=== PATIENT | female | born 1960 | race Caucasian/White ===

== ENCOUNTER 2023-02-25 11:57 | Observation (INO) | payer BC, SELFPAY ==
[2023-02-25] VITALS (14 sets, daily range): BP systolic 104–118; BP diastolic 59–76; PULSE 66–98; RESP 14–18; TEMP 36.4–37.1; O2SAT 93–98; BMI 27.2; BMI 28.8
--- NOTE | 2023-02-25 05:53 | EKG12_ITS ---
Test Reason : PRE-OP Blood Pressure : / mmHG Vent. Rate : 068 BPM Atrial Rate : 068 BPM P-R Int : 122 ms QRS Dur : 090 ms QT Int : 422 ms P-R-T Axes : 002 033 031 degrees QTc Int : 448 ms Normal sinus rhythm Normal ECG No previous ECGs available Confirmed by ANNELISE LOPEZ ([id number]), supervising film or videotape editor ALYCIA DUARTE ([id number]) on 03/10/2023 9:39:29 AM Referred By: Rafiq Ortiz Confirmed By:ANNELISE LOPEZ
[2023-02-25] MEDS: Lactated Ringers 1,000 ML 40 ML IV (06:15)
[2023-02-25 06:20] LABS: Hematocrit 40.5 % (37-47); Mean Corp Hgb Conc 32.1 g/dL (32-36); Mean Corpuscular Hgb 28.4 pg (27.0-32.0); Mean Corpuscular Volume 88.4 fL (81-99); Mean Platelet Vol. 9.4 fl (6.2-12.0); Platelet Count 244 K/mm3 (150-450); RBC Distribution Width CV 13.2 % (11.6-14.6); RBC Distribution Width SD 42.6 fl (35.1-43.9); Red Blood Count 4.58 M/mm3 (4.2-5.4); White Blood Count 6.3 K/mm3 (4.4-11.0)
[2023-02-25 06:32] LABS: Magnesium 2.2 mg/dL (1.6-2.6)
[2023-02-25] MEDS: Acetaminophen 500 MG Tablet 1000 MG PO ×2 (06:36→18:19)
[2023-02-25] MEDS: Gabapentin 600 MG Tablet PO (06:36)
[2023-02-25] MEDS: Scopolamine 1mg/72hr Patch 1 PATCH TD (06:36)
[2023-02-25] MEDS: Magnesium 1 GM over 15 mins IV (06:47)
[2023-02-25 07:26] LABS: Bedside Glucose 84 mg/dL (74-106)
--- NOTE | 2023-02-25 07:30 | TISS_PTH ---
PATIENT: EUFEMIA MARTIN LOC: MS3 U#:[id number] AGE/SX: 62/F ROOM: [facility] [place] RE02/25/[address]: Dr. Rafiq Ortiz MD : 1960 BED: 1 DIS: 02/26/2023 SPEC #: [id number] RECD: 02/25/23 11:49 STATUS: NETTA BRANCHCade #: [id number] THIERRY: 02/25/23 07:[address]: Rafiq Ortiz DEPT: SURGICAL PATHOLOGY RECD BY: Larissa Sharif ENTERED: 02/25/23 13:00 SP TYPE: Tissue Bx RABIA DR: Dr. Heena Nicole DO Tissues: A - TISSUE SURGICALLY REMOVED B - TISSUE SURGICALLY REMOVED Procedures: Surgery Specimen Level IV HEADER OPERATION: ERAS, removal painful textured saline implant bilateral breasts PRE-OP DIAGNOSIS: Bilateral breast pain; painful capsular contracture breast implants TISSUE SUBMITTED: A - Left breast capsule and tissue, B - Right breast capsule and tissue MICROSCOPIC DIAGNOSIS A. Left breast capsule and tissue: Fragments of dense fibroconnective tissue and skeletal muscle tissue consistent with breast capsule with reactive changes. A piece of skin, no pathologic diagnosis. B. Right breast capsule and tissue: Fragments of dense fibroconnective tissue and skeletal muscle tissue consistent with breast capsule with reactive changes. A piece of skin, no pathologic diagnosis. SJ:christophe 02/26/2023 MICROSCOPIC DESCRIPTION Slides are reviewed. GROSS DESCRIPTION A - Received in fixative is one container labeled with the patient's name and designated left breast capsule and tissue. The specimen consists of a piece of fibroadipose tissue consistent with capsule measuring 12.5 x 6.5 x 0.5 cm. A strip of mcknight-white skin is also noted measuring 10.0 x 0.3 x 0.3 cm. Also present in the container is a detached piece of adipose tissue measuring 2.0 x 2.0 x 0.5 cm. Sections do not reveal any mass lesion. [employer] sections are submitted in four cassettes as follows: 1 - skin and detached piece of tissue, 2-4 - tissue consistent with capsule. B - Received in fixative is one container labeled with the patient's name and designated right breast capsule and tissue. The specimen consists of an irregular piece of soft tissue consistent with breast capsule measuring 13.0 x 7.0 cm and 0.5 cm in thickness. A strip of mcknight-white skin is also noted measuring 10.0 x 0.5 x 0.4 cm. No mass lesion is identified. [employer] sections are submitted in three cassettes. Cassette 3 also contains the skin piece. / RUSS:christophe 02/25/2023 TC:5 CPT: 55208 x2
[2023-02-25] MEDS: Cefazolin 2 GM in 0.9% Normal Saline 100 ML IV (08:00)
[2023-02-25] MEDS: Lidocaine 1% /Epi 1:100 (20ml) 20 ML Vial (09:45)
--- NOTE | 2023-02-25 10:42 | PCM.OPRPT ---
Report of Operation Date of Procedure: 02/25/23 Pre-Operative Diagnosis: 1. Bilateral breast pain. 2. Painful capsular contracture breast implants, worse on the left. 3. Status placement of textured saline breast implants. 4. 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 5. 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 Post-Operative Diagnosis: Same. Surgery/Procedure Performed:: 1. Excision painful subglandular textured saline implant right breast with capsulectomy. 2. Excision painful subglandular textured saline implant left breast with capsulectomy. Description of Surgical Findings:: 62 year old woman presents with bilateral breast pain and firmness with associated wrinkling that started about a year ago and has worsened since.? She had saline breast implants placed in 2003.? The implants were textured.? I think they were placed under the muscle.? Patient is not sure but thought they were placed above the muscle.? Will try and get the operative report.? It was done at [facility] in [place].? She also noticed lateral migration of the nipples and some contracture leading to lateral migration of the implants.? She presents at this time for further evaluation about having the implants removed.? She is also nervous about developing DAVID-ALCL that has been associated with textured implants which she has.? ?At this time she denies fever.? She denies trauma to the breasts.? She denies recent infection.? She denies nipple discharge.? She states her last mammogram was done in June,.? It was normal according to the patient.? Will obtain that report. Patient was informed of the risks and complications of the procedure including alternatives to surgery. These were discussed with the patient personally. Patient voices understanding and wishes to proceed. Some of the risks and complications were included in a form from the [employer]. Potential risks and complications included but not inclusive of bleeding, infection, seroma, hematoma, bruising, swelling, prolonged need for drains, loss of sensation to skin, partial or complete loss of skin flap and/or nipple, wound breakdown, need for wound care, poor scarring, poor aesthetic outcome, intra operative cardiac or neurologic events, DVT, PE, and reaction to anesthesia. Urine Output - 880 ml. I used Laura absorbable hemostat, (I used 4 vials, 2 in each breast). Reference Number - [id number]. Lot Number - [id number]. Expiration - June 16, 2027, (2 vials in right breast). Reference Number - [id number]. Lot Number - [id number]. Expiration - October 15, 2027, (2 vials in left breast). Surgeon: Rafiq Ortiz MD piece goods packer: Marybel Renee RNFA Type of Anesthesia: General Anesthesiologist: Benjamin Bustos MD and Flaquita Macias CRNA Specimen's removed: 1. Right breast and capsule to Pathology and Microbiology. 2. Left breast and capsule to Pathology and Microbiology. Drains: Lex x2 (one in each breast). Estimated Blood Loss (mL): 50. Fluids Replaced: Urine Output - 880 ml Description of Procedure: In the preop area, the patient was placed in the standing position and preop markings were made. Sternal midline was marked down to the umbilicus. The inframammary folds were marked. Patient was taken to OR in supine position and was placed under general anesthesia. The breasts was prepped and draped in the usual fashion. Ioban was used also around the breasts. SCD's were placed for DVT prophylaxis. Perioperative antibiotics were given intravenously. A zavala catheter was placed. Using xylocaine with epinephrine, the inframammary scars were infiltrated. I lengthened the scars for better exposure in removing the implants. After waiting 5 minutes for the anesthetic to take effect, I first operated on the right breast and then the left breast. The inframammary incision was made down into the subcutaneous tissue until the capsule was seen. A capsulotomy was performed to visualize the implant. The implant was removed. It was a saline textured implant, 450 ml. Some of the saline had leaked out as the implant was not filled to capacity. Since this was an adjustable implant, the valve anteriorly probably loosened over time to allow some leakage. I squeezed the implant vigorously and no leak was appreciated. A capsulectomy was performed as this was a textured implant with a known risk of developing DAVID-ALCL (Breast Implant Associated - Anaplastic Large Cell Lymphoma). The capsule was peeled off the pectoralis muscle as it appeared the implants were placed on top of the muscle (subglandular). Some of the breast tissue and capsule were sent to Pathology for analysis to rule out carcinoma and to Microbiology for culture. A positive culture will necessitate antibiotic therapy. Hemostasis was obtained with electrocautery. I then irrigated the right breast wound with Irrisept 0.05% Chlorhexidine and this was followed with saline irrigation. A size 15 Lex drain was placed through a separate stab incision laterally and secured to the skin with 3-0 Nylon purse string suture. I then sprayed Laura absorbable hemostat into the right breast pocket to help minimize seroma formation. I used 2 vials. The capsular tissue did not have any calcifications. Some fluid was seen within the capsule. It was not milky. It looked serous in nature. I then went to the left breast. The inframammary incision was made down into the subcutaneous tissue until the capsule was seen. A capsulotomy was performed to visualize the implant. The implant was removed. It was a saline textured implant, 450 ml. Some of the saline had leaked out as the implant was not filled to capacity. Since this was an adjustable implant, the valve anteriorly probably loosened over time to allow some leakage. I squeezed the implant vigorously and no leak was appreciated. A capsulectomy was performed as this was a textured implant with a known risk of developing DAVID-ALCL (Breast Implant Associated - Anaplastic Large Cell Lymphoma). The capsule was peeled off the pectoralis muscle as it appeared the implants were placed on top of the muscle (subglandular). Some of the breast tissue and capsule were sent to Pathology for analysis to rule out carcinoma and to Microbiology for culture. A positive culture will necessitate antibiotic therapy. Hemostasis was obtained with electrocautery. I then irrigated the left breast wound with Irrisept 0.05% Chlorhexidine and this was followed with saline irrigation. A size 15 Lex drain was placed through a separate stab incision laterally and secured to the skin with 3-0 Nylon purse string suture. I sprayed Laura absorbable hemostat into the left breast pocket to help minimize seroma formation. I used 2 vials. The capsular tissue did not have any calcifications. Some fluid was seen within the capsule. It was not milky. It looked serous in nature. Both breast wounds were closed with 3-0 Vicryl figure of eight interrupted sutures for the subcutaneous and Ryann's fascial layer. The deep dermis and subcutaneous tissue was approximated with 3-0 Monocryl interrupted sutures. The skin was approximated with 3-0 V lock unidirectional barbed running subcuticular suture. This was followed with Histoacryl skin tissue adhesive. Kerlix gauze was applied to both breasts followed with a double 6 inch compression leonardo wrap. Patient tolerated the procedure well and was sent to PACU in satisfactory condition. Patient will be sent upstairs for continued postop care. She will be discharged tomorrow if tolerating po analgesia and is steady on her feet with ambulation. Followup office one week. Will remove the drains in 2 weeks. She will be maintained on antibiotics until the drains are removed. Will discuss the Pathology report when it is available. Will discuss the Microbiology report when it is available. A positive culture will necessitate antibiotic therapy. Grafts/Implants Used: Laura Procedure Start Time: 08:17 Procedure Stop Time: 10:38 Complications None. Admit VTE Documentation VTE Present on Admission: No VTE Mechan Device Prophylaxis: SCD's VTE Pharm Prophylaxis ordered?: Yes Addendum Addendum: Surgery Charges CPT - 75834-56 ICD-10 - N64.4, T85.44xA, Z98.82, N65.0, F40.298 67068 N64.4, T85.44xA, Z98.82, N65.0, F40.298
[2023-02-25] MEDS: HYDROmorphone 1 MG/ML Syringe IV (14:50)
[2023-02-25] MEDS: Lactated Ringers 1,000 ML 60 ML IV (14:50)
[2023-02-25] MEDS: Cefazolin 1 GM/50 ML BAG IV ×2 (17:26→21:53)
[2023-02-25] MEDS: Gabapentin 100 MG Capsule 200 MG PO (18:19)
[2023-02-25] MEDS: Ondansetron 4 MG/2 ML Vial IV (21:48)
[2023-02-25] MEDS: oxyCODONE 5 MG Tablet PO (21:52)
--- NOTE | 2023-02-25 23:55 | PCM.HP.BLA ---
History and Physical Date of Admission: 02/25/23 HISTORY OF PRESENT ILLNESS 62 year old woman presents with bilateral breast pain and firmness with associated wrinkling that started about a year ago and has worsened since. She had saline breast implants placed in 2003. The implants were textured. I think they were placed under the muscle. Patient is not sure but thought they were placed above the muscle. Will try and get the operative report. It was done at [facility] in [place]. She also noticed lateral migration of the nipples and some contracture leading to lateral migration of the implants. She presents at this time for further evaluation about having the implants removed. She is also nervous about developing DAVID-ALCL that has been associated with textured implants which she has. At this time she denies fever. She denies trauma to the breasts. She denies recent infection. She denies nipple discharge. She states her last mammogram was done in June,. It was normal according to the patient. Will obtain that report. 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 Chronic sinusitis Constipation Deformity of reconstructed breast Depression Frequent headaches IBS (irritable bowel syndrome) Joint pain Pain of both breasts Rheumatoid arthritis Spondylosis Vitamin D deficiency PAST SURGICAL HISTORY History of appendectomy History of bilateral carpal tunnel release History of breast augmentation History of cholecystectomy History of total hysterectomy Status post saline breast implant ALLERGIES Sulfa (Sulfonamide Antibiotics) MEDICATIONS alprazolam escitalopram oxalate (Lexapro) fesoterodine (Toviaz) FAMILY HISTORY Other - Depression, Heart disease, IBS (irritable bowel syndrome), Thyroid disorder SOCIAL HISTORY Smoking Status: Never smoker alcohol intake: current details: occasionally in social situations substance use type: does not use REVIEW OF SYSTEMS General - Denies fever and weight loss. Has fatigue. Eyes - Has cataracts. Denies glaucoma. ENT - Denies nasal congestion and sore throat. Endocrine - Denies excessive thirst and urination. Has chronic sinus problems. Had textures saline implants placed in 2003. Skin - Denies suspicious lesions and skin cancer. Musculoskeletal - Has joint pain, joint stiffness, back pain. Denies weakness of muscles and joints and arthritis. Neuro - Has headaches. Cardiovascular - Denies chest pain, fatigue, and shortness of breath with exertion. Psych - Denies anxiety. Has depression. Respiratory - Denies chronic cough and shortness of breath. Gastrointestinal - Denies nausea, vomiting, diarrhea. Has constipation. Hematologic - Denies abnormal bruising and bleeding. Genitourinary - Denies hematuria and urinary frequency. Has incontinence. PHYSICAL EXAMINATION General - Alert and Oriented. Bra size is a C cup. HEENT - PERRL. EOMI. Throat is clear. Neck - Supple and nontender. No cervical adenopathy. Breasts - some firmness noted superiorly and laterally in both breasts. Also medially on the left. Some tenderness to palpation, worse on the left. Sometimes the pain is stabbing. There is some lateral displacement of the nipple areolar complexes. Width of the breasts are 15 cm bilaterally and the height of the breasts are 17 cm bilaterally. I can feel a thickening of the capsule indicating a contracture of the implants which can explain the pain and the distortion of the breasts, Oliver Grade III. No breast masses palpable. No clinical evidence of seroma formation. Lungs - Clear to auscultation. Heart - Regular rate and rhythm. Abdomen - Soft and nondistended. Extremities - FROM. No axillary adenopathy. Radial pulses are palpable. Neuro - CN II-XII grossly intact. Psych - Normal mood and affect. ASSESSMENT 1. Bilateral breast pain. 2. Painful capsular contracture breast implants, worse on the left. 3. Status placement of textured saline breast implants. 4. 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 5. 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 PLAN Will obtain copy of the mammogram. Patient is interested in having the textured breast implants removed because of pain and distortion from a capsular contracture and also because of cancer phobia from developing DAVID-ALCL because of presence of textured implants. This lymphoma (ALCL) is associated with textured implants. It is generally recommended to leave the implants alone if patient is asymptomatic. However, some patients don't want to wait until they become symptomatic and just want the textured implants removed. The treatment is removal of the implants with capsulectomy. After the implants are removed, she is interested in further breast reconstruction with a breast lift. Right now she is not interested in further breast implants. I use smooth walled cohesive gel implants. DAVID-ALCL has not been associated with smooth walled implants at this time. She will think about it. After removing the implants, I want to see how much healing has occurred and how much skin contraction has occurred. Generally they don't contract equally so a breast lift is usually needed. By waiting, she may end up with a smaller operation depending on the degree of skin contraction. Also I like to separate the procedures to allow healing and to minimize stress on the blood supply to the nipple. With the placement of the implants, some of the blood supply to the nipple is disrupted. This can effect vascular viability of the nipple areolar complex especially if a breast lift is done and the nipple needs to be elevated several cm. Usually incision needs to be made completely around the nipple in order to elevate it, sometimes several cm. If the elevation is small, i.e., 2 cm, sometimes we are able to just make an incision around half the nipple areolar complex, usually superior. The blood supply is mainly through the inferior aspect of the nipple areolar complex. So elevating the nipple in this scenario is doable and safer since the blood supply inferiorly would be maintained. Also by waiting in between surgeries, the risk of developing nipple viability issues can be minimized. Patient is aware of the necessity for separate operations. Will write a letter to the insurance company for medical approval for removal of the implants with capsulectomy. If not approved, she will be financially responsible for the surgery. She voices understanding. After obtaining medical approval, she will return for a preop visit to answer any last minute questions and to sign the office consent and to obtain photographs. Patient was informed of the risks and complications of the procedure including alternatives to surgery. These were discussed with the patient personally. Patient voices understanding and wishes to proceed with the current plan of obtaining medical approval for the surgery. When surgery is done it will be under general anesthesia with a surgical observation overnight stay in the hospital. She will have drains in for 10-14 days. She will wear a compression garment or compression leonardo wrap after surgery for 6 weeks and be on a lifting restriction for 6 weeks. For the breast lift surgery, that will be considered cosmetic and she will be financially responsible. She voices understanding. She may or may not need drains for her bilateral breast lift. Assessment & Plan Assessment/Plan (1) Pain of both breasts: (2) Capsular contracture of breast implant: (3) Status post saline breast implant: (4) Deformity of reconstructed breast: (5) Cancer phobia:
[2023-02-26 00:44] VITALS: BP 104/62; PULSE 78; RESP 14; TEMP 36.9; O2SAT 94
[2023-02-26] MEDS: Acetaminophen 500 MG Tablet 1000 MG PO ×3 (00:59→12:14)
[2023-02-26] MEDS: oxyCODONE 5 MG Tablet PO ×2 (01:05→14:44)
[2023-02-26 04:55] VITALS: BP 101/56; PULSE 81; RESP 16; TEMP 36.6; O2SAT 92
[2023-02-26] MEDS: Cefazolin 1 GM/50 ML BAG IV ×2 (05:02→14:40)
[2023-02-26 06:17] VITALS: BP 106/62
[2023-02-26] MEDS: Lactated Ringers 1,000 ML 60 ML IV (06:21)
[2023-02-26 06:23] LABS: Hemoglobin 12.6 g/dL (12.0-15.0); Mean Corp Hgb Conc 31.5 g/dL (32-36); Mean Corpuscular Hgb 28.4 pg (27.0-32.0); Mean Corpuscular Volume 90.1 fL (81-99); Mean Platelet Vol. 9.6 fl (6.2-12.0); Platelet Count 270 K/mm3 (150-450); RBC Distribution Width CV 13.4 % (11.6-14.6); RBC Distribution Width SD 44.3 fl (35.1-43.9); Red Blood Count 4.44 M/mm3 (4.2-5.4); White Blood Count 11.9 K/mm3 (4.4-11.0)
[2023-02-26 07:08] LABS: Anion Gap 4 (5-15); BUN 10 mg/dL (7-18); BUN/Creat Ratio 11.2 RATIO (10-20); Calcium,Total 8.8 mg/dL (8.5-10.1); Chloride 99 mmol/L (98-107); Creatinine, Serum 0.89 mg/dL (0.55-1.02); EST Glomerular Filtration Rate 69 mL/min (>60); Est Glom Filt Rate - Afr Amer 83 mL/min (>60); Estimated Creatinine Clearance 57.32 ml/min; Glucose 100 mg/dL (74-106); Potassium 3.6 mmol/L (3.5-5.1); Prealbumin 29.5 mg/dL (20.0-40.0); Sodium Level 133 mmol/L (136-145)
[2023-02-26 08:22] VITALS: O2SAT 94
[2023-02-26 09:25] VITALS: BP 97/57; PULSE 76; RESP 18; TEMP 36.5; O2SAT 96
[2023-02-26] MEDS: Gabapentin 100 MG Capsule 200 MG PO ×2 (09:36→12:14)
[2023-02-26] MEDS: Docusate Sodium 100 MG Capsule PO (09:37)
[2023-02-26] MEDS: Escitalopram Oxalate 20 MG Tablet PO (09:37)
[2023-02-26] MEDS: Enoxaparin 40 MG/0.4 ML Syringe SC (09:37)
[2023-02-26] MEDS: Tolterodine Tartrate 2 MG CAP.SA PO (09:37)
--- NOTE | 2023-02-26 13:25 | PCM.PN.SRG ---
Subjective Subjective Postop #1 She states her pain is well controlled. She is complaining of heart burn. Objective Data Objective Data Vital Signs: Vital Signs Temp Pulse Resp BP Pulse Ox O2 Del Method O2 Flow Rate 97.5 F L 77 18 108/53 L 96 Room Air 2 02/26/23 14:46 02/26/23 14:46 02/26/23 14:46 02/26/23 14:46 02/26/23 14:46 02/26/23 14:46 02/25/23 16:00 Oxygen Flow Rate (L/min) 2 Oxygen Delivery Method Room Air Weight: 167 lb 12.348 oz Body Mass Index (BMI) 28.8 Intake & Output: Intake and Output for Last 24 Hours 02/25/23 02/26/23 23:59 23:59 Intake Total 1217.33 / 1417.33 1852 / 1852 Output Total 1050 / 1320 430 / 430 Balance 167.33 / 97.33 1422 / 1422 Lex drain Left breast 100 ml, right breast 115 ml Lab / Micro Data Attestation: I reviewed the patient's lab results. 02/26/23 05:40 02/26/23 05:40 Micro: Microbiology 02/25/23 12:38 Tissue - Other Gram Stain - Final 02/25/23 12:37 Tissue - Other Gram Stain - Final Physical Exam Const oriented x3 HEENT normocephalic Eyes General Eye: normal appearance of both eyes Resp normal respiratory effort Effort and Inspection: able to speak in complete sentences Cardio regular rate and regular rhythm GI soft to palpation Back/Spine normal ROM Extremity full ROM Skin Skin Narrative: Operative dressing removed. Incision is dry and intact. No bruising. Nipples viable. Good symmetry. Lex drains intact draining serosanguineous drainage. Neuro oriented x3 Psych mental status grossly normal Assessment & Plan Assessment/Plan (1) Capsular contracture of breast implant: (2) Pain of both breasts: (3) Status post saline breast implant: (4) Deformity of reconstructed breast: (5) Cancer phobia: (6) Other acute postprocedural pain: PLAN: Plan Patient is doing well. She states her pain is well controlled. Will give her Mylanta now for her heart burn/indigestion. Will order omeprazole to be taken daily. Operative dressing removed. Incisions are dry and intact. Nipples viable. Good symmetry. She will wear compression. She will keep track of her drainage amount. Lex drains have drained left 100 ml and right 115 ml in the past 24 hours. She will be placed on antibiotic until her drains are removed. She has a 20 lb weight lifting restriction. Follow up in the office next week.
--- NOTE | 2023-02-26 13:44 | DCINST_ITS ---
Discharge Instructions Diet Discharge Diet: No restrictions and - (encourage nutritional supplementation with protein to help the healing process.) Activity Discharge Activity: May Not Drive, May Not Shower (until drains are removed.) and - (keep head elevated. no heavy lifting.) May shower in (days): 14 (after the drains are removed.) May resume sexual activity in: 10-14 days Weight Bearing Status: Weight bearing as tolerated Lifting Restrictions: 20 lbs. Keep extremity elevated above heart level: - (elevate head.) Dressing / Incision Call your doctor if your incision/area has: Continuous Slow Oozing, Sudden Increased Bleeding, Increased Pain/ Swelling, Increased Redness, Foul Smelling Discharge and Swelling at the incision site Call your doctor if you observe: Fever of 101 or Higher, Coldness, Increased Pain, Shortness of breath, Chest pain, Calf discomfort and Uncontrolled pain Change Dressing in: 2 days Cleanse incision/area with: - (may get incisions wet in the shower after the drains are removed.) Drain: Suction (kristel drain x2 to bulb suction. empty and record output daily.) Follow Up Care Please Follow Up With: Rafiq Ortiz MD When: one week. call [phone] for appt. Test Results: Test results from this visit will be discussed in further detail at your follow- up appointment, if applicable. Discharge Plan Admission Admit Date/Time: 02/25/23 11:57 Primary Reason for Your Visit: removal painful bilateral textured breast implants with capsulectomy Attending Provider: Rafiq Ortiz Primary Care Provider: Heena Nicole Discharge Orders/Prescriptions Prescriptions: New cefadroxil 500 mg capsule 500 mg PO BID Qty: 28 0RF L.acidoph,saliva-B.bif-S.therm [Acidophilus Probiotic Blend] 175 mg capsule 1 cap PO DAILY Qty: 30 0RF oxycodone-acetaminophen [Percocet] 5-325 mg tablet 1 tab PO Q6H PRN (Reason: pain (scale score 7-10)) 7 Days Qty: 28 0RF Rx Instructions: 28 tabs (twenty-eight) diazepam [Valium] 5 mg tablet 5 mg PO BID PRN (Reason: spasms) 7 Days Qty: 14 0RF Rx Instructions: 14 tabs (fourteen) Continued fesoterodine [Toviaz] 4 mg tablet extended release 24 hr 4 mg PO DAILY escitalopram oxalate [Lexapro] 20 mg tablet 20 mg PO DAILY alprazolam 0.5 mg tablet 0.5 mg PO QHS PRN (Reason: anxiety) Other Ambulatory Orders: 12 Lead EKG (Routine) Timeframe: [id number] Location: None Selected Ordered By: Dr. Juan Hair Referrals / Follow Up: Heena Nicole DO [Primary Care Provider] - Disposition Disposition (needs filled in before D/C Order can be placed): Home, Self Care
[2023-02-26] MEDS: Mag Hydrox/Al Hydrox/Simeth 30 ML UDC 15 ML PO (14:40)
[2023-02-26 14:46] VITALS: BP 108/53; PULSE 77; RESP 18; TEMP 36.4; O2SAT 96
== END 2023-02-26 15:25 | disposition home or self-care (01) ==
LOC: SDC 02-26 10:30 → MS3 02-26 10:30
PROVIDERS: Anesthesiology; Admitting Provider Surgery; PCP Internal Medicine; Referring Provider Surgery; Visit Provider Surgery
PROC: (CPT 19371; principal; 2023-02-25 07:15)
DX: N64.4 Mastodynia (principal); M06.9 Rheumatoid arthritis, unspecified; Z98.82 Breast implant status; T85.44XA Capsular contracture of breast implant, initial encounter; Y82.8 Other medical devices associated with adverse incidents; F45.29 Other hypochondriacal disorders; N65.0 Deformity of reconstructed breast; F32.A Depression, unspecified; Z79.899 Other long term (current) drug therapy
CPT/HCPCS: 19371; 00402; 36415; 80048; 82962; 83735; 84134; 85027; 87070; 87075; 87077; 87102; 87176; 87186; 87205; 87206; 88305; 93005; 94668; 96365; 96366; 96372; 96375; 99221; 99252; J7120; G0378; G0463; J2405; J3475; Q9968

== ENCOUNTER → 2023-03-09 | Outpatient (CLI) | payer BC, SELFPAY ==
--- NOTE | 2023-03-09 13:35 | VDLE_ITS ---
Reason For Study: RLE Pain RIGHT LEFT GSV is normal. CFV is compressible, spontaneous, phasic, CFV is compressible, spontaneous, phasic, competent, and demonstrates normal competent and demonstrates normal augmentation. augmentation. FV is compressible, spontaneous, phasic, competent and demonstrates normal augmentation. POP V is compressible, spontaneous, phasic, competent and demonstrates normal augmentation. T/P Trunk is compressible. PTV is compressible. RT PerV is compressible. Procedure This is a venous duplex using B-mode, color flow and spectral Doppler. Exam performed in department. The exam was diagnostic. A preliminary report was called and/or faxed to [facility] office. VL/Venous Duplex US, Unilateral Interpretation Summary Deep veins of the right lower extremity are patent and compressible segmentally . There is no evidence of right lower extremity deep vein thrombosis. Valvular competence alicia ears intact within the proximal deep venous system on the right . The right great saphenous vein a ppears patent and compressible segmentally. The left common femoral vein is patent and compressib le . Ordering Physician: Huong Sanchez Referring Physician: Heena Nicole Performed By: Kuldeep Aleman RVT
== END | disposition home or self-care (01) ==
LOC: CVS 13:34
PROVIDERS: PCP Internal Medicine; Referring Provider Nurse Practitioner Family; Visit Provider Nurse Practitioner Family
DX: M79.661 Pain in right lower leg (principal); M79.89 Other specified soft tissue disorders; T85.44XA Capsular contracture of breast implant, initial encounter; X58.XXXA Exposure to other specified factors, initial encounter; N65.0 Deformity of reconstructed breast; Z98.82 Breast implant status
CPT/HCPCS: 93971